=== PATIENT | female | born 1960 | race Caucasian/White ===

== ENCOUNTER → 2017-03-24 | Outpatient (CLI) | payer BC ==
--- NOTE | 2017-03-24 18:19 | DIAGNOSTIC IMAGING REPORT ---
RIGHT LOWER EXTREMITY VENOUS DOPPLER CLINICAL HISTORY: Right calf pain COMPARISON STUDY: No previous studies for comparison. TECHNIQUE: Sonography of the deep venous system of the right lower extremity was performed. Compression and augmentation were evaluated. FINDINGS: The right common femoral, superficial femoral and popliteal veins were compressible. Augmentation was normal. Flow was shown within the deep calf vessels. Note is made of a 7.3 cm complex cystic right popliteal fossa abnormality. IMPRESSION: 1. No evidence of deep venous thrombus within the right lower extremity. 2. 7.3 cm complex cystic right popliteal fossa abnormality. While nonspecific, this likely reflects a popliteal cyst. A short-term follow-up ultrasound in 3 months is recommended. Electronically signed by: Mark Rudolph M.D. 03/24/2017 6:18 PM Dictated Date/Time: 03/24/2017 6:15 PM
== END | disposition home or self-care (01) ==
LOC: C.ULTR 17:34
PROVIDERS: ATTEND Orthopaedic Surgery
DX: M79.661 Pain in right lower leg (principal); M71.21 Synovial cyst of popliteal space [Baker], right knee

== ENCOUNTER 2017-12-16 08:37 | Inpatient (IN) | payer BC ==
[2017-11-18 13:31] VITALS: BMI 29.0
--- NOTE | 2017-11-18 14:09 | PAT Medication Instructions ---
Service Date Nov 18, 2017. Current Home Medication List Acetaminophen (Tylenol), 2 TAB PO Q6 PRN for Pain Citalopram Hydrobromide (Celexa), 1 TAB PO QPM Clopidogrel (Plavix), 75 MG PO QAM Meloxicam (Mobic), 15 MG PO QAM Tramadol (Ultram), 1 TAB PO QAM Medication Instructions For Your Scheduled Surgery - Hold the following medications 7 days prior to surgery per surgeon and prescribing physician: Clopidogrel (Plavix), 75 MG PO QAM - [facility] surgeon for instructions: Meloxicam (Mobic), 15 MG PO QAM - Take the following medications the morning of surgery with a sip of water: Acetaminophen (Tylenol), 2 TAB PO Q6 PRN for Pain (okay to take up to 4 hours prior to surgery if needed) Tramadol (Ultram), 1 TAB PO QAM (okay to take up to 4 hours prior to surgery if needed) - Take the following medications as scheduled the night before surgery: Tramadol (Ultram), 1 TAB PO QAM Citalopram Hydrobromide (Celexa), 1 TAB PO QPM If you have any questions please call us at [phone] or [phone] or [phone]
--- NOTE | 2017-11-18 14:50 | DIAGNOSTIC IMAGING REPORT ---
CHEST 2 VIEWS ROUTINE CLINICAL HISTORY: pat preoperative evaluation COMPARISON STUDY: No previous studies for comparison. FINDINGS: The bones soft tissues and hemidiaphragms are normal. The cardiomediastinal silhouette is normal. The lungs are clear. The pulmonary vasculature is normal. IMPRESSION: Negative chest. The above report was generated using voice recognition software. It may contain grammatical, syntax or spelling errors. Electronically signed by: Luke Rice M.D. 11/18/2017 2:49 PM Dictated Date/Time: 11/18/2017 2:49 PM
[2017-11-18 15:20] LABS: BASO % 0.3 %; BASO ABS # 0.02 K/uL (0-0.2); EOS % 1.4 %; HEMOGLOBIN 16.4 g/dL (12.0-16.0); IG# 0.01 K/uL (0.00-0.02); LYMPH ABS # 1.86 K/uL (1.2-3.4); MEAN CELL VOLUME 90.2 fL (80-100); MEAN CORPUSCULAR HEMOGLOBIN 32.2 pg (25-34); MEAN CORPUSCULAR HGB CONC 35.7 g/dl (32-36); MEAN PLATELET VOLUME 9.8 fL (7.4-10.4); MONO % 6.3 %; MONO ABS # 0.45 K/uL (0.11-0.59); NEUT % 65.9 %; NEUT ABS # 4.71 K/uL (1.4-6.5); PLATELET COUNT 227 K/uL (130-400); RED CELL DISTRIBUTION WIDTH CV 12.5 % (11.5-14.5); RED CELL DISTRIBUTION WIDTH SD 41.1 fL (36.4-46.3); WHITE BLOOD COUNT 7.15 K/uL (4.8-10.8)
[2017-11-18 15:32] LABS: PTT PATIENT 25.8 SECONDS (21.0-31.0)
[2017-11-18 15:58] LABS: ALBUMIN 3.8 gm/dl (3.4-5.0); CREATININE 0.76 mg/dl (0.60-1.20); POTASSIUM 4.1 mmol/L (3.5-5.1)
[2017-11-19 05:57] LABS: HEMOGLOBIN A1C 5.4 % (4.5-5.6)
--- NOTE | 2017-12-04 10:08 | HISTORY & PHYSICAL EXAMINATION ---
DATE OF ADMISSION: 12/16/2017 CHIEF COMPLAINT: Right knee pain. HISTORY OF PRESENT ILLNESS: Purvi is a 57-year-old female with a 2 year history of right knee pain. The patient rates her pain at 6/10. She has pain with her daily activities. She has limited standing and walking tolerance. Pain is worse with weightbearing. The patient has been taking tramadol, physical therapy and wearing a brace. She has also had prior knee arthroscopies. She has failed conservative treatment and is scheduled for right knee replacement. PAST MEDICAL HISTORY: Hypercholesterolemia, history of TIA. She denies heart disease, diabetes or DVT. PAST SURGICAL HISTORY: Hysterectomy and right knee arthroscopy. SOCIAL HISTORY: The patient smokes 1 pack a day x30 years. She denies tobacco use. She lives in a single story home. She is and works at [employer]. FAMILY HISTORY: Negative for DVT. MEDICATIONS: Celexa 40 mg daily, Plavix 75 mg daily, simvastatin 40 mg daily, tramadol 50 mg p.r.n., Mobic 15 mg daily. ALLERGIES: PENICILLIN CAUSES HIVES. REVIEW OF SYSTEMS: See HPI. Ten other systems reviewed, all negative. PHYSICAL EXAMINATION: VITAL SIGNS: Height 5 foot 3 inches, weight 170 pounds, BMI 30. GENERAL: This is a well-developed, well-nourished female who is alert and oriented x3. Mood and affect are appropriate. HEENT: Normocephalic, atraumatic. Mucous membranes are moist and intact. NECK: Supple without lymphadenopathy. HEART: Regular rate and rhythm without murmurs, rubs or gallops. LUNGS: Clear to auscultation without wheezes or rhonchi. ABDOMEN: Soft and nontender. Bowel sounds are equal and active. EXTREMITIES: No ecchymosis, redness or warmth. She has mild effusion. She has a large palpable Lopez cyst. She has varus deformity. Range of motion is from 5-110 degrees with no laxity. She is neurovascularly intact with +5/5 strength. X-RAY EXAMINATION: AP and lateral views show joint space narrowing and osteophyte formation. IMPRESSION: Degenerative joint disease, right knee. PLAN: The patient will be admitted for a right total knee arthroplasty. She will have [facility] for home physical therapy. She will resume Plavix likely with once a day, aspirin for DVT prophylaxis.
[~2017-12-16] VITALS: Ht 160 cm; Wt 77.4 kg
[2017-12-16] VITALS (9 sets, daily range): BP systolic 119–164; BP diastolic 57–96; PULSE 60–78; TEMP 36.5–37.2; O2SAT 97–99; Ht 160 cm; Wt 77.4 kg
[2017-12-16] MEDS: TRANEXAMIC ACID INJ 1,000 MG x 2 Bags IV SCH ×4 (06:30→10:45)
[~2017-12-16 08:37] MED LIST: ACET-1256 PO; ACETAMINOPHEN 500 MG TAB PO SCH; BUPIVACAINE 0.25% 30 ML VIAL ONE; BUPIVACAINE 0.5 % 5 MG/1 ML PF 10ML VIAL ONE; CITA40TA12 PO; CLINDAMYCIN 600 MG/54 ML D5W IV SCH; CLOP1TAB15 PO; CeleBREX 200 MG CAP PO SCH; DEXAMETHASONE 4 MG TAB PO SCH; FAMOTIDINE 20 MG TAB PO SCH; GABAPENTIN 600 MG PO SCH; GENERAL ORDER PROBLEM SCH; LACTATED RINGER'S 1000ML 1,000 ML IV SCH; LACTATED RINGER'S 1000ML 500 ML IV SCH; MELO7.5T5 PO; METOCLOPRAMIDE HCL 10 MG TAB PO SCH; ROPIVACAINE 5MG/ML 30 ML 150 MG, BUPIVACAINE 0.5% MPF INJ 30 ML, EpINEphrine HCL INJ 0.... INFIL SCH; TRAM-10 PO; VANCOMYCIN IV 1,250 MG in SODIUM CHLORIDE 0.9% 250ML 250 ML IV SCH
[2017-12-16] MEDS ORDERED: EpHEDrine SULFATE INJ 50 MG/ML AMP IV PRN (08:45)
[2017-12-16] MEDS ORDERED: ATROPINE SULFATE 0.1 MG/ML 5ML SYR IV PRN (08:45)
[2017-12-16] MEDS ORDERED: MIDAZOLAM HCL 1 MG/ML 2ML VIAL ONE (09:22)
[2017-12-16] MEDS ORDERED: FENTANYL CITRATE INJ 50 MCG/1 ML 2 ML VIAL ONE (09:23)
[2017-12-16] MEDS ORDERED: VANCOMYCIN IV 1,250 MG in SODIUM CHLORIDE 0.9% 250ML 250 ML IV SCH (09:30)
--- NOTE | 2017-12-16 09:30 | History & Physical Bridge Note ---
H&P Re-Evaluation Bridge Note: I have examined the patient, reviewed the History & Physical and in the interval since the performance of the History & Physical I have noted the following changes of clinical significance: No changes noted
[2017-12-16] MEDS ORDERED: ORTHO JOINT ANESTHETIC ONE (10:10)
[2017-12-16] MEDS ORDERED: POVIDONE-IODINE OP SOLN 30 ML BTL ONE (10:10)
[2017-12-16] MEDS ORDERED: BACITRACIN 50000 UNIT VIAL ONE (10:10)
--- NOTE | 2017-12-16 11:45 | [facility] Post Operative Brief Note ---
Immediate Operative Summary Operative Date Dec 16, 2017. 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
--- NOTE | 2017-12-16 11:46 | [facility] Operative Report ---
Operative Report Operative Date Dec 16, 2017. 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) Kamron Ibarra PA-C Estimated Blood Loss 5ML Findings Patient presents with severe end-stage tricompartmental degenerative joint disease varus alignment subchondral cystic changes marginal osteophyte sclerosis varus alignment with [id number] changes no response to conservative management including physical therapy and anti-inflammatories Specimens A: Right Knee Bone and Tissue Anesthesia Type MAC Spinal Regional Complication(s) none Disposition Recovery Room / PACU Indications X-rays will be evidence of subchondral sclerosis marginal osteophytes subchondral cystic changes varus alignment bone the bone changes no response of the conservative management patient is failed attempts at conservative management the above was verified intraoperatively patient is failed times of his consolidation corticosteroid injection anti-inflammatories relative rest activity modification Description of Procedure After proper prepping and draping of the Right lower extremity anterior midline incision was made over the region of the extensor extensor mechanism after meticulous hemostasis was obtained and maintained in subcutaneous tissues a medial parapatellar incision was made The patella was subluxed lateralward the medial lateral gutter were cleaned from any hypertrophic synovitis and scar tissue of the distal femoral block was placed and the distal femoral osteotomy cut was made subsequently the chamfers anterior and posterior osteotomy cuts were made utilizing the 4-in-1 block the tibia was subsequently subluxed anteriorward medial and ateral meniscal remnants were excised in their entirety remnants of the anterior and posterior cruciate ligaments were excised in their entirety excellent exposure of the proximal tibia was obtained the tibial osteotomy guide was placed on the proximal tibial osteotomy cut was made once again the knee was irrigated with copious amounts of sterile saline solution the patella was subsequently everted lateralward thickened scar tissue around the patella was removed the patella was subsequently cut utilizing a freehand technique and was drilled prepared for final preparation and placement of patella socially flexion-extension gaps were checked and the equal and symmetric trials were placed to the appropriate femoral and tibial trials with poly-spacer being placed for equal flexion and extension gaps and full range of motion including extension to 0 and flexion to 140 the trial components after having been taken to recovery range of motion was subsequently removed meticulous hemostasis was obtained and maintained subsequently a knee block injection of joint cocktail including ropivacaine 0.5% 150 mg. Bupivacaine 0.5 % epinephrine 1-200,030 mL's toradol 30 mg dexamethasone 4 mg ketamine 10 mg clonidine 100 micrograms normal saline solution 30 mg was infiltrated into the soft tissues of the posterior knee medial lateral gutters and periosteal synovium special attention was paid to protect neurovascular structures at all times subsequently trial components having been removed the knee was irrigated with sterile saline solution. debris was removed the proximal tibia was subsequently prepared and was made ready for the placement of the tibial component tibial component was also cemented and tamped into position the femoral component was subsequently placed and cemented in the position the patellar component was subsequently cemented in position because hemostasis once again obtained and maintained wound having been thoroughly irrigated with debridement and debridement lavage was performed as well as a medial parapatellar incision closed with #1 Vicryl in interrupted fashion subcutaneous was closed with #2 Vicryl skin was closed with skin clips. PA-C was necessary for prepping and drapping as well as wound closure of deep fascia Sub cutaneous tissue and skin and was necessary for the case. A sterile compressive dressing was placed patient was taken to recovery in stable condition of report dictated by Dario I attest to the content of the Intraoperative Record and any orders documented therein. Any exceptions are noted below. I attest to the content of the Intraoperative Record and any orders documented therein. Any exceptions are noted below.
[2017-12-16] MEDS ORDERED: LIDOCAINE HCL 2% 2 ML VIAL (20MG/ML) ONE (11:50)
[2017-12-16] MEDS ORDERED: ONDANSETRON INJ 2 MG/ML 2 ML VIAL ONE (11:50)
[2017-12-16] MEDS ORDERED: PROPOFOL IV EMULSION 10 MG/ML 20 ML VIAL IV ONE (11:50)
[2017-12-16] MEDS ORDERED: TRAMADOL HCL 50 MG TAB PO PRN (12:45)
[2017-12-16] MEDS ORDERED: MAGNESIUM HYDROXIDE SUSP 30 ML UDC PO PRN (12:45)
[2017-12-16] MEDS ORDERED: MoRPHine SULFATE 2 MG/ML CARP IV PRN (12:45)
[2017-12-16] MEDS ORDERED: ONDANSETRON INJ 2 MG/ML 2 ML VIAL IV PRN (12:45)
[2017-12-16] MEDS ORDERED: BISACODYL 10 MG SUPP PR PRN (12:45)
[2017-12-16] MEDS ORDERED: ALUMINUM/MAGNESIUM/SIMETH (MAALOX MAX) 30 ML UDC PO PRN (12:45)
--- NOTE | 2017-12-16 12:46 | DIAGNOSTIC IMAGING REPORT ---
R KNEE 1 OR 2 VIEWS ROUTINE CLINICAL HISTORY: Postoperative evaluation. COMPARISON: None FINDINGS: Alignment of the total right knee arthroplasty is anatomic. There is no fracture or unexpected radiopaque foreign body. Surgical drains are in place. IMPRESSION: Expected findings following total right knee arthroplasty. Electronically signed by: Mark Rudolph M.D. 12/16/2017 12:45 PM Dictated Date/Time: 12/16/2017 12:45 PM
--- NOTE | 2017-12-16 13:28 | Anesthesiology Progress Note ---
Anesthesia Post Op Note Date & Time Dec 16, 2017 at 13:28 Vital Signs Pain Intensity: 0 Vital Signs Past 12 Hours Date Time Temp Pulse Resp B/P (MAP) Pulse Ox O2 Delivery O2 Flow Rate FiO2 12/16/17 13:10 36.5 62 18 110/64 97 Nasal Cannula 2 12/16/17 12:55 36.5 63 16 118/70 98 Nasal Cannula 2 12/16/17 12:45 70 16 113/78 98 Nasal Cannula 2 12/16/17 12:35 66 16 113/66 99 Nasal Cannula 2 12/16/17 12:28 36.7 71 16 114/63 100 Nasal Cannula 2 12/16/17 09:26 97 Room Air 12/16/17 09:23 36.6 75 16 164/96 Notes Mental Status: alert / awake / arousable, participated in evaluation Pt Amnestic to Procedure: Yes Nausea / Vomiting: adequately controlled Pain: adequately controlled Airway Patency, RR, SpO2: stable & adequate BP & HR: stable & adequate Hydration State: stable & adequate Neuraxial Anesthesia: was administered, sensory block is resolving Anesthetic Complications: no major complications apparent
[2017-12-16] MEDS: D5W AND 1/2NSS + 20MEQ KCL 1,000 ML IV SCH ×2 (14:44→23:54)
[2017-12-16] MEDS: FERROUS GLUCONATE 324 MG TAB PO SCH (17:47)
[2017-12-16] MEDS: CLINDAMYCIN IV 600 MG in DEXTROSE 5% 50ML 50 ML IV SCH (17:48)
[2017-12-16] MEDS: ACETAMINOPHEN 500 MG TAB PO SCH (17:48)
[2017-12-16] MEDS: DOCUSATE SODIUM 100 MG CAP PO SCH (20:37)
[2017-12-16] MEDS: ASPIRIN 81 MG ECTAB PO SCH (20:37)
[2017-12-16] MEDS: CeleBREX 200 MG CAP PO SCH (20:38)
[2017-12-16] MEDS: OXYCODONE HCL IR 5 MG TAB (IMMEDIATE RELEASE) PO PRN (20:40)
[2017-12-16] MEDS ORDERED: CITALOPRAM 40 MG TAB PO SCH (21:00)
[2017-12-16] MEDS ORDERED: SENNA 8.6 MG TAB PO SCH (21:00)
[2017-12-17] MEDS: OXYCODONE HCL IR 5 MG TAB (IMMEDIATE RELEASE) PO PRN ×2 (02:12→10:30)
[2017-12-17] MEDS: CLINDAMYCIN IV 600 MG in DEXTROSE 5% 50ML 50 ML IV SCH (02:12)
[2017-12-17 03:56] VITALS: BP 124/68; PULSE 56; TEMP 36.6; O2SAT 97
[2017-12-17] MEDS: ACETAMINOPHEN 500 MG TAB PO SCH (05:48)
[2017-12-17 06:08] LABS: HEMATOCRIT 39.7 % (37-47); HEMOGLOBIN 13.7 g/dL (12.0-16.0); MEAN CELL VOLUME 91.1 fL (80-100); MEAN CORPUSCULAR HEMOGLOBIN 31.4 pg (25-34); MEAN CORPUSCULAR HGB CONC 34.5 g/dl (32-36); PLATELET COUNT 226 K/uL (130-400); RED CELL DISTRIBUTION WIDTH CV 12.5 % (11.5-14.5); RED CELL DISTRIBUTION WIDTH SD 41.7 fL (36.4-46.3); WHITE BLOOD COUNT 21.81 K/uL (4.8-10.8)
[2017-12-17 06:44] LABS: CALCIUM 8.4 mg/dl (8.5-10.1); CREATININE 0.75 mg/dl (0.60-1.20); POTASSIUM 4.3 mmol/L (3.5-5.1)
--- NOTE | 2017-12-17 06:58 | Orthopedic Progress Note ---
Orthopedic Progress Note Date of Service Dec 17, 2017. Subjective Post OP Day: 1 (right TKA) Reports: feeling well, pain controlled w PO medications, Denies: complaints, chest pain, SOB, nausea / vomiting, light headedness, calf pain Objective calves soft nontender, N/V intact, capillary refill less than 2 sec., dressing C /D/I, A&O x3, toes mobile, hemovac drainage (175cc/8 hours) Date Time Temp Pulse Resp B/P (MAP) Pulse Ox O2 Delivery O2 Flow Rate FiO2 12/17/17 03:56 36.6 56 16 124/68 (86) 97 Room Air 12/16/17 23:50 Room Air 12/16/17 23:09 36.8 60 16 119/57 (77) 97 Room Air 12/16/17 19:59 37.2 64 17 125/67 (86) 97 Room Air 12/16/17 17:00 36.6 78 17 148/69 (95) 98 Room Air 12/16/17 15:48 36.9 62 17 121/65 (83) 99 Room Air 12/16/17 15:32 Nasal Cannula 2.0 12/16/17 14:51 36.5 61 17 123/72 (89) 97 Nasal Cannula 2.0 12/16/17 14:16 36.9 63 16 130/72 (91) 99 Nasal Cannula 2.0 12/16/17 13:45 Nasal Cannula 2.0 12/16/17 13:45 97 Nasal Cannula 12/16/17 13:45 37.0 68 20 125/67 (86) 97 Nasal Cannula 2.0 12/16/17 13:10 36.5 62 18 110/64 97 Nasal Cannula 2 12/16/17 12:55 36.5 63 16 118/70 98 Nasal Cannula 2 12/16/17 12:45 70 16 113/78 98 Nasal Cannula 2 12/16/17 12:35 66 16 113/66 99 Nasal Cannula 2 12/16/17 12:28 36.7 71 16 114/63 100 Nasal Cannula 2 12/16/17 09:26 97 Room Air 12/16/17 09:23 36.6 75 16 164/96 Laboratory Results 24 Hours: Test 12/17/17 05:31 Hematocrit 39.7 % Hemoglobin 13.7 g/dL Assessment & Plan Assessment: POD #1 s/p right tka -pt/ot -dvt proph with azucena/scd/asa/plavix -plan for dc home with [facility], possibly after PT today may leave drain in and have pulled tomorrow, will recheck after PT Discharge Planning Discharge Planning: home with home health DVT Prophylaxis: TEDs, SCDs Therapy: Physical Therapy
--- NOTE | 2017-12-17 07:01 | Discharge Instructions ---
Discharge Instructions Date of Service Dec 17, 2017. Admission Reason for Admission: Right Knee Osteoarthritis Discharge Discharge Diagnosis / Problem: right total knee replacement Discharge Goals Goal(s): Decrease discomfort, Improve function, Increase independence Activity Recommendations Activity Limitations: as noted below Weightbearing Status: Right weightbearing (as tolerated) . Instructions / Follow-Up Instructions / Follow-Up ACTIVITY RECOMMENDATIONS: SELF CARE INSTRUCTIONS AFTER TOTAL KNEE REPLACEMENT A. You may need to continue a physical therapy program after discharge from the hospital. There are several options available to you. Your doctor will assist you in selecting the best one for you. 1. An out-patient facility 2 to 3 times a week for therapy or home therapy. 2. Continue working on all exercises taught to you in the hospital. Your goals should be to increase bending of your knee to 90 degrees and beyond and to fully straighten your knee. B. You may progress at your own pace from walking with a walker or crutches to a cane; then to no assistive devices. C. Make walking a part of your daily routine. Be up as much as comfortable with rest periods throughout the day. Rest with leg elevation is very important. Use the ice wrap frequently for the first 3-4 weeks. D. There are no restrictions on activities. 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 E. Wear the long elastic stockings (THIAGO hose) 20 hours a day for 2 weeks after surgery. They can be removed several times a day for laundering and for a bath. F. You may shower, no tub baths until cleared by your doctor. SPECIAL CARE INSTRUCTIONS: VERY IMPORTANT TO READ AND REVIEW A. There are a few signs you need to watch for after you are home. Call [facility] [place] if you notice any of the followin. Increased severe knee pain. Some pain is expected especially when you exercise. 2. Increased swelling in your leg or knee; pain or swelling of the calf muscle in either lower leg. 3. Any fluid drainage from the incision. 4. Shortness of breath or chest pain. B. Please call [facility] at if you have any concerns or questions about your operation or recovery. The doctor or his nurse will return your call promptly. C. You must take antibiotics before dental work, bladder, bowel or other surgery. Your doctor will provide you with a permanent care to carry describing this precaution. IMPORTANT: * REMEMBER TO TAKE ASPIRIN, 81 MG, TWICE DAILY FOR 4 WEEKS UNLESS OTHERWISE DIRECTED. THIS IS YOUR BLOOD THINNER. * HIGH RISK PATIENTS MAY BE PRESCRIBED A STRONGER BLOOD THINNER. THIS WILL BE PROVIDED AT DISCHARGE. * CALL IF INCREASED PAIN, REDNESS, DRAINAGE OR FEVER GREATER THAT 101. * WEAR THIAGO HOSE 20 HOURS PER DAY FOR 2 WEEKS. * DERMABOND Prineo- This is a mesh tape dressing that is covered with glue. It should remain in place until the incision is properly healed, usually 10-14 days. This dressing is designed to naturally slough off. You may trim the excess mesh tape as it peels off. Incision may be briefly wet in a shower. Dry immediately by blotting with a clean, dry towel. Do not bath or swim until instructed by your doctor. Do not scratch, rub, or pick at the dressing. Do not apply any topical ointments or lotions until dressing is completely removed and/or instructed by your doctor. There may be a small piece of suture material at one end of your incision. Do not pull or trim this. If it is bothersome or catching on clothing, you may cover it with a band-aid. FOLLOW UP VISIT: If appointment is not already scheduled: Please call [facility] [place] to make a follow-up appointment for 2 weeks after your surgery at . Current Hospital Diet Patient's current hospital diet: Regular Diet Discharge Diet Recommended Diet: Regular Diet Procedures Procedures Performed: Right Total Knee Arthroplasty utilizing [email or web address] journey to patient matched total knee arthroplasty size 4 femur 3 tibia 11 Norma 29 oval patella Pending Studies Studies pending at discharge: no Laboratory Results Hemoglobin A1c Test 11/18/17 14:16 Range/Units Estimated Average Glucose 108 mg/dl Hemoglobin A1c 5.4 4.5-5.6 % Medical Emergencies . Who to Call and When: Medical Emergencies: If at any time you feel your situation is an emergency, please call 911 immediately. . Non-Emergent Contact Non-Emergency issues call your: Primary Care Provider, Surgeon . "Provider Documentation" section prepared by Luke Mar. . [place] Drug Monitoring Program Search Results: patient reviewed within database, no issues identified
[2017-12-17] MEDS ORDERED: ONDA-170 PO (07:04)
[2017-12-17] MEDS ORDERED: RXC5 PO (07:04)
[2017-12-17] MEDS ORDERED: CLB200 PO (07:04)
[2017-12-17] MEDS ORDERED: ULT50X PO (07:04)
[2017-12-17] MEDS ORDERED: ASPEC81 PO (07:04)
[2017-12-17] MEDS ORDERED: CLC100 PO (07:04)
[2017-12-17] MEDS ORDERED: ACET-24 PO (07:04)
[2017-12-17 07:17] VITALS: BP 132/74; PULSE 58; TEMP 36.6; O2SAT 99
[2017-12-17] MEDS ORDERED: MULTIVITAMIN TAB PO SCH (09:00)
[2017-12-17] MEDS ORDERED: CLOPIDOGREL BISULFATE 75 MG TAB PO SCH (09:00)
[2017-12-17] MEDS: FERROUS GLUCONATE 324 MG TAB PO SCH (09:40)
[2017-12-17] MEDS: CeleBREX 200 MG CAP PO SCH (09:41)
[2017-12-17] MEDS: DOCUSATE SODIUM 100 MG CAP PO SCH (09:41)
[2017-12-17] MEDS: ASPIRIN 81 MG ECTAB PO SCH (09:42)
[2017-12-17 09:45] VITALS: BP 137/75; PULSE 66; TEMP 36.5; O2SAT 97
[2017-12-17 10:15] VITALS: BP 135/69; PULSE 67; TEMP 36.5; O2SAT 95
[2017-12-17] MEDS: D5W AND 1/2NSS + 20MEQ KCL 1,000 ML IV SCH (10:30)
--- NOTE | 2017-12-17 10:48 | Anesthesiology Progress Note ---
Anesthesia Post Op Note Date & Time Dec 17, 2017 at 10:47 Vital Signs Vital Signs Past 12 Hours Date Time Temp Pulse Resp B/P (MAP) Pulse Ox O2 Delivery O2 Flow Rate FiO2 12/17/17 10:15 36.5 67 16 135/69 (91) 95 Room Air 12/17/17 09:49 36.6 58 16 99 Room Air 12/17/17 09:45 36.5 66 16 137/75 (95) 97 Nasal Cannula 2.0 12/17/17 07:17 36.6 58 16 132/74 (93) 99 Room Air 12/17/17 03:56 36.6 56 16 124/68 (86) 97 Room Air 12/16/17 23:50 Room Air 12/16/17 23:09 36.8 60 16 119/57 (77) 97 Room Air Notes Mental Status: alert / awake / arousable, participated in evaluation Pt Amnestic to Procedure: Yes Nausea / Vomiting: adequately controlled Pain: adequately controlled Airway Patency, RR, SpO2: stable & adequate BP & HR: stable & adequate Hydration State: stable & adequate Neuraxial Anesthesia: sensory block resolved Anesthetic Complications: no major complications apparent
== END 2017-12-17 11:15 | disposition home health service (06) | DRG 470 ==
LOC: C.ACU 08:37 → C.3E 09:40 → ENRESERV 12:48
PROVIDERS: ADMIT Orthopaedic Surgery; ATTEND Orthopaedic Surgery
PROC: 0SRC0J9 Replacement of Right Knee Joint with Synthetic Substitute, Cemented, Open Approach (ICD-10-PCS; principal; 2017-12-16 11:00)
DX: M17.11 Unilateral primary osteoarthritis, right knee (principal); E78.00 Pure hypercholesterolemia, unspecified; Z79.899 Other long term (current) drug therapy; Z79.1 Long term (current) use of non-steroidal anti-inflammatories (NSAID); Z79.02 Long term (current) use of antithrombotics/antiplatelets; Z86.73 Personal history of transient ischemic attack (TIA), and cerebral infarction without residual deficits; Z87.891 Personal history of nicotine dependence; Z88.0 Allergy status to penicillin

== ENCOUNTER 2019-09-27 06:06 | Inpatient (IN) ==
--- NOTE | 2019-09-13 15:56 | PAT Medication Instructions ---
Medication Instructions Date of Service September 13, 2019 Home Medications Zocor 1 tab PO QAM acetaminophen [Tylenol Extra Strength] 1,000 mg PO Q6H PRN citalopram 40 mg PO HS clopidogrel [Plavix] 75 mg PO QAM ibuprofen 200 mg PO Q6H PRN multivitamin 1 tab PO QAM omeprazole magnesium [Prilosec OTC] 20 mg PO DAILY PRN oxycodone 5 - 10 mg PO Q4H PRN polyethylene glycol 3350 [Miralax] 17 g PO DAILY PRN tramadol 50 - 100 mg PO Q6H PRN ASK your surgeon for instructions ibuprofen 200 mg PO Q6H PRN ASK your prescriber and surgeon clopidogrel [Plavix] 75 mg PO QAM DO NOT take the morning of surgery multivitamin 1 tab PO QAM polyethylene glycol 3350 [Miralax] 17 g PO DAILY PRN Take morning of surgery With a small sip of water, OTHERWISE NOTHING TO EAT OR DRINK AFTER MIDNIGHT: Zocor 1 tab PO QAM acetaminophen [Tylenol Extra Strength] 1,000 mg PO Q6H PRN (if needed, may be taken up to four hours before surgery) omeprazole magnesium [Prilosec OTC] 20 mg PO DAILY PRN (if needed) oxycodone 5 - 10 mg PO Q4H PRN (if needed, may be taken up to four hours before surgery) tramadol 50 - 100 mg PO Q6H PRN (if needed, may be taken up to four hours before surgery) Take evening before surgery citalopram 40 mg PO HS Other Notes If you have any questions please call us at [phone] or [phone] or [phone] or [phone]
--- NOTE | 2019-09-14 10:21 | Anesthesiology Consultation ---
Date of Service September 14, 2019 Assessment & Plan (1) Encounter for pre-operative examination: Chart Review Chart Review: Acceptable Risk for Surgery and Patient seen in Pre Admission Testing Teaching & Discussion Instructed NPO after midnight before surgery, except medications with 15 cc of water. Medication instructions provided according to the PAT guidelines. Plavix instructions per surgeon and prescriber. History Surgery Operation Date: 09/27/19 07:45 Proposed Procedures p L5-S1 Decompression and Fusion; Spinal Cord Monitoring - Gary Brasher DO Height/Weight Height: 5 ft 3.75 in Weight: 84.7 kg Allergies Allergy/AdvReac Type Severity Reaction Status Date / Time adhesive Allergy Unknown blisters Verified 09/09/19 12:20 WITH BANDAIDS Penicillins Allergy Unknown HIVES Verified 09/09/19 12:20 nickel Allergy EARS SWELL Verified 09/09/19 12:21 UP, ITCHY-JEWELRY oxycodone AdvReac Unknown NAUSEA, Verified 09/09/19 12:25 DIZZINESS Medications Home Medications Medication Instructions Recorded Confirmed Last Taken Zocor 1 tab PO QAM 09/09/19 09/09/19 Unknown acetaminophen [Tylenol Extra 1,000 mg PO Q6H PRN 09/09/19 09/09/19 Unknown Strength] citalopram 40 mg PO HS 09/09/19 09/09/19 Unknown clopidogrel [Plavix] 75 mg PO QAM 09/09/19 09/09/19 Unknown ibuprofen 200 mg PO Q6H PRN 09/09/19 09/09/19 Unknown multivitamin 1 tab PO QAM 09/09/19 09/09/19 Unknown omeprazole magnesium [Prilosec OTC] 20 mg PO DAILY PRN 09/09/19 09/09/19 Unknown oxycodone 5 - 10 mg PO Q4H PRN 09/09/19 09/09/19 Unknown polyethylene glycol 3350 [Miralax] 17 g PO DAILY PRN 09/09/19 09/09/19 Unknown tramadol 50 - 100 mg PO Q6H PRN 09/09/19 09/09/19 Unknown Past Medical History Medical History Chronic back pain TO LEFT LEG/HIP Heartburn Hyperlipidemia Osteoarthritis Transient ischemic attack (TIA) HX LAST ONE 2012-PLACED ON PLAVIX-NO ISSUES SINCE Exercise / Class Metabolic Activity II 4-5 Yardwork/Stairs/Walk up hill (Denies CP or SOB with 1 FOS) Past Family History Family History Grandmother (Maternal) Family history of esophageal cancer Past Surgical History Surgical History History of hysterectomy History of total knee replacement RIGHT Past Anesthesia History No Hx of Anesthesia Complications and No Family Hx of Anesthesia Complications (other than mother PONV) History of PONV No Hx of PONV and Hx of Motion Sickness Social History Smoking Status: Current every day smoker Smoking cigarettes per day: 10-20 CIGS A DAY X 30 YRS Do You Dip or Chew Tobacco: No Hx Alcohol Use: No Hx Substance Use: No Review of Systems Pt denies any recent chest pain, shortness of breath, palpitations, cough, fever or URI. Physical Exam Vital Signs BP: 185/85 (pt to see PCP prior to surgery, pt states she is nervous and in pain today) P: 63bpm SPO2: 96% RA T: 98.2 F R: 16 ENMT Mouth: + dentures and + edentulous Thyromental Distance: < 3.5 Finger Breadths (3) Mallampati Class: II Neck normal visual inspection; neck extension not limited Respiratory normal respiratory effort Auscultation: lungs clear to auscultation bilaterally Cardiovascular Rate/Rhythm: regular rate and regular rhythm Heart Sounds: no murmur Vessels: no carotid bruit Extremities: no edema Testing Laboratory Results 09/14/19 10:09 09/14/19 10:09 PT 9.9 Seconds (9.0-12.0) 09/14/19 10:09 INR 1.0 (0.9-1.1) 09/14/19 10:09 APTT 25.1 Seconds (21.0-31.0) 09/14/19 10:09 Urine Color Yellow 09/14/19 10:09 Urine Appearance Clear (Clear) 09/14/19 10:09 Urine pH 6.5 (4.5-7.5) 09/14/19 10:09 Ur Specific [place] 1.006 (1.000-1.030) 09/14/19 10:09 Urine Protein Negative (Negative) 09/14/19 10:09 Urine Glucose (UA) Negative (Negative) 09/14/19 10:09 Urine Ketones Negative (Negative) 09/14/19 10:09 Urine Nitrite Negative (Negative) 09/14/19 10:09 Ur Leukocyte Esterase Negative (Negative) 09/14/19 10:09 Blood Type O Positive 09/14/19 10:09 Antibody Screen NEGATIVE 09/14/19 10:09 Electrocardiogram Date: 09/14/19 Findings: + NSR @ (62bpm) Chest X-Ray Date: 09/14/19 Findings: + NAD
[2019-09-14 10:41] LABS: Basophils # (auto) 0.03 K/uL (0-0.2); Basophils % (auto) 0.4 %; Eosinophils # (auto) 0.11 K/uL (0-0.5); Eosinophils % (auto) 1.5 %; Hematocrit (blood only) 48.8 % (37-47); Hemoglobin 16.9 g/dL (12.0-16.0); Immature Granulocytes # (auto) 0.02 K/uL (0.00-0.02); Immature Granulocytes % (auto) 0.3 %; Lymphocytes # (auto) 1.57 K/uL (1.2-3.4); Lymphocytes % (auto) 22.1 %; Mean Corpuscular Hemoglobin 31.6 pg (25-34); Mean Corpuscular Hgb Conc 34.6 g/dL (32-36); Mean Corpuscular Volume 91.2 fL (80-100); Mean Platelet Volume 10.1 fL (7.4-10.4); Monocytes # (auto) 0.56 K/uL (0.11-0.59); Monocytes % (auto) 7.9 %; Neutrophils # (auto) 4.83 K/uL (1.4-6.5); Neutrophils % (auto) 67.8 %; Platelet Count 242 K/uL (130-400); RDW Coefficient of Variation 12.8 % (11.5-14.5); RDW Standard Deviation 42.3 fL (36.4-46.3); Red Blood Count 5.35 M/uL (4.2-5.4); White Blood Count 7.12 K/uL (4.8-10.8)
[2019-09-14 10:42] LABS: Appearance Urine Clear (Clear); Bilirubin Urine Negative (Negative); Blood Urine Negative (Negative); Color Urine Yellow; Glucose Urine UA Negative (Negative); Ketones Urine Negative (Negative); Leukocyte Esterase Urine Negative (Negative); Nitrite Urine Negative (Negative); Protein Urine Negative (Negative); Specific Gravity Urine 1.006 (1.000-1.030); Urobilinogen Urine Negative (Negative); pH Urine 6.5 (4.5-7.5)
[2019-09-14 11:02] LABS: Partial Thromboplastin Ratio 0.9; Partial Thromboplastin Time 25.1 Seconds (21.0-31.0); Prothrombin Time 9.9 Seconds (9.0-12.0)
--- NOTE | 2019-09-14 11:22 | XRay Report ---
XR chest Pre-admission PA/Lat CLINICAL HISTORY: Preoperative chest COMPARISON STUDY: 11/18/2017 FINDINGS: The cardiac and mediastinal contours are normal. There is no evidence of focal pulmonary co nsolidation. There is no evidence of failure. No pleural effusions are visualized.[ IMPRESSION: No active disease in the chest. ACT 112: Negative or not required by law. Electronically signed by: Estrada Grossman M.D. 09/14/2019 11:21 AM
--- NOTE | 2019-09-14 13:54 | Electrocardiogram Report ---
Test Reason : Blood Pressure : / mmHG Vent. Rate : 062 BPM Atrial Rate : 062 BPM P-R Int : 148 ms QRS Dur : 074 ms QT Int : 408 ms P-R-T Axes : 066 021 042 degrees QTc Int : 414 ms Normal sinus rhythm Normal ECG No previous ECGs available Confirmed by Alfred Sparks ([id number]) on 09/14/2019 1:54:37 PM Referred By: Gary Brasher Confirmed By:Alfred Sparks
[2019-09-14 14:23] LABS: BUN Creatinine Ratio 14.4 (10-20); Creatinine Clr Calc Pharmacy 67.7 ml/min; Est GFR (African American) 76.1; Est GFR (Non-African American) 65.7; Potassium 4.2 mmol/L (3.5-5.1)
[~2019-09-27 06:06] MED LIST changes: -ACET-1256 PO; -BUPIVACAINE 0.25% 30 ML VIAL ONE; -BUPIVACAINE 0.5 % 5 MG/1 ML PF 10ML VIAL ONE; -CITA40TA12 PO; +CLINDAMYCIN 600 MG/54 ML BAG IV SCH; -CLINDAMYCIN 600 MG/54 ML D5W IV SCH; -CLOP1TAB15 PO; -DEXAMETHASONE 4 MG TAB PO SCH; -FAMOTIDINE 20 MG TAB PO SCH; +GABAPENTIN 600 MG DOSE PO SCH; -GABAPENTIN 600 MG PO SCH; -GENERAL ORDER PROBLEM SCH; -LACTATED RINGER'S 1000ML 1,000 ML IV SCH; -LACTATED RINGER'S 1000ML 500 ML IV SCH; +LR 15ML/HR IV SCH; -MELO7.5T5 PO; -METOCLOPRAMIDE HCL 10 MG TAB PO SCH; -ROPIVACAINE 5MG/ML 30 ML 150 MG, BUPIVACAINE 0.5% MPF INJ 30 ML, EpINEphrine HCL INJ 0.... INFIL SCH; -TRAM-10 PO; -VANCOMYCIN IV 1,250 MG in SODIUM CHLORIDE 0.9% 250ML 250 ML IV SCH
[2019-09-27] MEDS ORDERED: GLYCOPYRROLATE 0.2 MG/ML VIAL ONE ×2 (06:38→09:08)
[2019-09-27] MEDS ORDERED: LIDOCAINE HCL 2% 2 ML VIAL/AMP(20MG/ML) INFIL ONE (06:38)
[2019-09-27] MEDS ORDERED: DEXAMETHASONE SOD INJ 4 MG/ML VIAL ONE (06:38)
[2019-09-27] MEDS ORDERED: PROPOFOL IV EMULSION 10 MG/ML 20 ML VIAL IV ONE (06:38)
[2019-09-27] MEDS ORDERED: fentaNYL citrate 100 MCG/2 ML VIAL ONE ×2 (06:38)
[2019-09-27] MEDS ORDERED: NEOSTIGMINE METHYLSULFATE 1 MG/ML 10ML VIAL ONE ×2 (06:38→09:08)
[2019-09-27] MEDS ORDERED: MIDAZOLAM HCL 1 MG/ML 2ML VIAL ONE (06:38)
[2019-09-27] MEDS ORDERED: ONDANSETRON INJ 2 MG/ML 2 ML VIAL ONE (06:38)
[2019-09-27] MEDS ORDERED: HYDROmorphone INJ 2 MG/ML SYR/VIAL ONE (06:41)
[2019-09-27] MEDS ORDERED: ATROPINE SULFATE 0.1 MG/ML 10ML SYR IV PRN (06:53)
[2019-09-27] MEDS ORDERED: ePHEDrine sulfate 50 MG/ML AMP IV PRN (06:53)
[2019-09-27] MEDS ORDERED: ONDANSETRON INJ 2 MG/ML 2 ML VIAL IV PRN ×2 (06:53→10:37)
[2019-09-27] MEDS ORDERED: BACITRACIN INJ 50,000 UNIT VIAL ONE (07:05)
[2019-09-27] MEDS ORDERED: BUPIVACAINE/EPINEPHRINE 0.5% MPF 1:200,000 10 ML VIAL ONE (07:05)
--- NOTE | 2019-09-27 07:24 | History & Physical Report ---
Date of Service September 27, 2019 Assessment & Plan (1) Neurogenic claudication due to lumbar spinal stenosis: Decompression fusion L5-S1 Present on Admission?: Yes History of Present Illness Chief Complaint: Back and bilateral leg pain Primary Care Provider: Leroy Garza MD This is a 59-year-old female who presents with chronic persistent back and leg pain after failing extensive course of nonoperative care is here for surgical intervention. Allergies Allergy/AdvReac Type Severity Reaction Status Date / Time adhesive Allergy Unknown blisters Verified 09/09/19 12:20 WITH BANDAIDS Penicillins Allergy Unknown HIVES Verified 09/09/19 12:20 nickel Allergy EARS SWELL Verified 09/09/19 12:21 UP, ITCHY-JEWELRY oxycodone AdvReac Unknown NAUSEA, Verified 09/09/19 12:25 DIZZINESS Home Medications Home Medications Medication Instructions Recorded Confirmed Type Zocor 1 tab PO QAM 09/09/19 09/27/19 History acetaminophen [Tylenol Extra 1,000 mg PO Q6H PRN 09/09/19 09/27/19 History Strength] citalopram 40 mg PO HS 09/09/19 09/27/19 History clopidogrel [Plavix] 75 mg PO QAM 09/09/19 09/27/19 History ibuprofen 200 mg PO Q6H PRN 09/09/19 09/27/19 History multivitamin 1 tab PO QAM 09/09/19 09/27/19 History omeprazole magnesium [Prilosec OTC] 20 mg PO DAILY PRN 09/09/19 09/27/19 History oxycodone 5 - 10 mg PO Q4H PRN 09/09/19 09/27/19 History polyethylene glycol 3350 [Miralax] 17 g PO DAILY PRN 09/09/19 09/27/19 History tramadol 50 - 100 mg PO Q6H PRN 09/09/19 09/27/19 History Past Med/Surg History Medical History Chronic back pain TO LEFT LEG/HIP Heartburn Hyperlipidemia Osteoarthritis Transient ischemic attack (TIA) HX LAST ONE 2012-PLACED ON PLAVIX-NO ISSUES SINCE Surgical History History of hysterectomy History of total knee replacement RIGHT Family History Grandmother (Maternal) Family history of esophageal cancer Social History Preferred Language: Korean Communication Ability: Effective Rivet Passer Required: No Beliefs That Will Affect Care: None Current Living Situation: Spouse and Family Other Information That Helps Us Care for You: No Feels Safe at Home: Yes Safety Concerns: Feels Safe At This Time Smoking Status: Current every day smoker Cigarettes Per Day: 10-20 CIGS A DAY X 30 YRS ; Do You Dip or Chew Tobacco: No ; Second Hand Exposure: Yes (FAMILY SMOKED) ; Hx Alcohol Use: No Hx Substance Use: No Physical Exam Physical Exam: Patient is alert and oriented neurologically intact. Results & Data Vital Signs (Past 12 Hours) Vital Signs Temp Pulse Resp BP Pulse Ox 09/27/19 06:38 36.9 C 76 18 181/98 H 97
--- NOTE | 2019-09-27 07:24 | History & Physical Bridge Note ---
Date of Service September 27, 2019 History & Physical Bridge Note I have examined the patient, reviewed the History & Physical and in the interval since the performance of the History & Physical I have noted the following changes of clinical significance: no changes noted
[2019-09-27] MEDS ORDERED: FLOSEAL HEMOSTATIC MATRIX 10ML TOP ONE (08:19)
--- NOTE | 2019-09-27 09:17 | Operative Report ---
Post Operative Report Pre & Post Diagnosis Operation Date: 09/27/19 07:45 Pre-Op Diagnosis: Lumbar spondylolisthesis L5-S1 with neurogenic claudication Post-Op Diagnosis: Same I identified the patient and participated in the time-out.: Yes Procedure Operation Date: 09/27/19 07:45 Actual Procedures #1 lumbar decompression with bilateral medial facetectomies foraminotomies L4-5 L5-S1. #2 posterior spinal fusion L5-S1. #3 placement posterior instrumentation L5-S1. #4 interbody fusion L5-S1. #5 placement of peek cage 11 x 22 mm at L5-S1. #6 placement of locally harvested morselized autograft in the posterior lateral gutters. #7 placement infuse collagen sponge by mass graft in the posterior lateral gutters and ostial amp and interbody space. Surgeon Gary Brasher, Line Service Supervisor Ame Mariscal Estimated Blood Loss 75 Findings See Below Patient is 5 foot 3 inches tall weighing over 84 kg with a BMI in excess of 33. Patient's body habitus did add increased technical difficulty to the procedure adding at least 25% increase in operative time. Specimens None Indications This is a 59-year-old female that presents with above-mentioned diagnosis after failing extensive course of nonoperative care is here for surgical intervention. Description of Procedure Patient was met with identified and informed consent obtained. Patient was then taken to the operative suite underwent intubation placed in a prone position the Shashank table on top of the Stiven frame. All bony prominences well-padded eyes inspected to ensure no external pressure placed upon the. This point the lumbar spine was prepped and draped in normal sterile fashion. Sharp dissection with the assistance of Bovie cautery was performed down to and exposing the lamina and transverse processes of L5 and the sacral ala bilaterally. Obvious bilateral pars defect noted. Complete laminectomy of L5 partial laminectomy of L4 was then performed including bilateral medial facetectomies and foraminotomies addressing all spinal stenosis. Pedicle screws were then placed in L5 and the S1 levels bilaterally with assistance of fluoroscopy and appropriate size hilary placed. By way of a trans-foraminal approach on the left complete discectomy was performed endplates curetted to subcortical bleeding bone and an 11 x 22 mm peek cage filled with osteo-bone graft tapped in position. The rods were then locked in final position bilaterally. The transverse processes of L5 and sacral ala burred to subcortical bleeding bone. Infuse collagen sponge master graft and local autograft placed in the posterior lateral gutters. 15 round WINTER drain inserted. The incision was then closed with 1 Vicryl in the fascia 2-0 Vicryl subcutaneously and 4 Monocryl for final skin closure. Steri-Strips sterile dressing placed. Patient waiting to PACU stable disc. Please note Ame Mariscal was present at the entire procedure involved the patient positioning complex portions of the surgery and final skin closure. Lastly spinal cord monitoring was utilized that the procedure no changes noted. I attest to the content of the Intraoperative Record and any orders documented therein. Any exceptions are noted below.
--- NOTE | 2019-09-27 09:24 | Fluoroscopy Report ---
FL lumbar spine 2-3V CLINICAL HISTORY: L5-S1 DECOMPRESSION/FUSION COMPARISON STUDY: None. FLUOROSCOPY TIME: 20 seconds. FLUOROSCOPIC IMAGES: 2 FINDINGS: Fluoroscopy images demonstrate an L5-S1 discectomy with interbody spacer placement. There i s a posterior decompression. There are bilateral pedicle screws at the L5 and S1 levels. IMPRESSION: Fluoroscopy provided for L5-S1 discectomy, posterior decompression and bilateral pedicle screw fusion. ACT 112: Negative or not required by law. Electronically signed by: Mark Rudolph M.D. 09/27/2019 9:22 AM
[2019-09-27] MEDS: fentaNYL citrate 100 MCG/2 ML VIAL IV PRN ×2 (09:45→09:50)
--- NOTE | 2019-09-27 10:09 | Anesthesiology Progress Note ---
Date of Service September 27, 2019 Anesthesia Post Procedure Vital Signs Vital Signs: Temp Pulse Pulse Resp BP Pulse Ox 09/27/19 10:05 97.2 F L 77 16 151/82 H 95 09/27/19 09:55 64 12 148/81 H 95 09/27/19 09:45 78 16 162/85 H 96 09/27/19 09:35 71 15 154/95 H 92 09/27/19 09:28 97.2 F L 79 16 190/97 H 91 09/27/19 06:38 98.4 F 76 18 181/98 H 97 Pain Intensity Back: Pain Intensity: 2 Transfer of Care Handoff Completed per policy Notes Mental Status: alert / awake / arousable and participated in evaluation Patient Amnestic to Procedure: Yes Nausea / Vomiting: adequately controlled Pain: adequately controlled Airway Patency, RR, SpO2: stable & adequate BP & HR: stable & adequate Hydration State: stable & adequate Anesthetic Complications: no major complications apparent and Pt Satisfied with anesthetic care
[2019-09-27] MEDS ORDERED: TRAMADOL HCL 50 MG TABLET PO PRN (10:37)
[2019-09-27] MEDS ORDERED: LORazepam 0.5 MG TAB PO PRN (10:37)
[2019-09-27] MEDS ORDERED: SOD PHOSPHATE/SOD BIPHOSPHATE ENEMA 132 ML BTL PR PRN (10:37)
[2019-09-27] MEDS ORDERED: NALOXONE HCL 0.4 MG/1 ML VIAL/CARP IV PRN (10:37)
[2019-09-27] MEDS ORDERED: ONDANSETRON 4 MG OD TAB PO PRN (10:37)
[2019-09-27] MEDS ORDERED: METOCLOPRAMIDE HCL INJ 5 MG/ML 2 ML VIAL IV PRN (10:37)
[2019-09-27] MEDS ORDERED: HYDROmorphone INJ 0.5 MG/0.5 ML SYR IV PRN (10:37)
[2019-09-27] MEDS ORDERED: ACETAMINOPHEN 1,000 MG/100 ML VIAL IV PRN (10:37)
[2019-09-27] MEDS ORDERED: DO NOT ADMINISTER FLU VACCINE PRN (10:37)
[2019-09-27] MEDS ORDERED: PANTOprazole 40 MG TAB PO PRN (10:37)
[2019-09-27] MEDS ORDERED: FAMOTIDINE 20 MG TAB PO PRN (10:37)
[2019-09-27] MEDS ORDERED: PROMETHAZINE HCL 12.5 MG in SODIUM CHLORIDE 0.9% 50 ML IV PRN (10:37)
[2019-09-27] MEDS ORDERED: ALUMINUM/MAGNESIUM SUSP 30 ML UDC PO PRN (10:37)
[2019-09-27] MEDS ORDERED: MAGNESIUM HYDROXIDE SUSP 30 ML UDC PO PRN (10:37)
[2019-09-27] MEDS ORDERED: HYDROmorphone INJ 1 MG/ML SYRINGE IV PRN (10:37)
[2019-09-27] MEDS ORDERED: LORazepam 0.5 MG/1 ML VIAL IV PRN (10:37)
[2019-09-27] MEDS ORDERED: ACETAMINOPHEN 500 MG TAB PO PRN (10:37)
[2019-09-27] MEDS ORDERED: DO NOT ADMINISTER PNEUMOCOCCAL VACCINE PRN (10:37)
[2019-09-27] MEDS ORDERED: bisacodyL 10 MG SUPP PR PRN (10:37)
[2019-09-27] MEDS: LACTATED RINGER'S 1,000 ML IV SCH ×2 (11:13→21:17)
[2019-09-27] MEDS: KETOROLAC 30 MG/ML VIAL IV SCH ×3 (12:18→23:33)
[2019-09-27] MEDS ORDERED: COUGH DROP (SUGAR FREE) LOZ 24 LOZ/1 BOX BUCCAL PRN (14:59)
[2019-09-27] MEDS: CLINDAMYCIN 600 MG in DEXTROSE 5% 50 ML IV SCH ×2 (16:30→23:33)
[2019-09-27] MEDS: CITALOPRAM 40 MG TAB PO SCH (21:09)
[2019-09-27] MEDS: DOCUSATE SODIUM/SENNA 50/8.6MG TAB PO SCH (21:09)
[2019-09-28 05:26] LABS: Basophils # (auto) 0.01 K/uL (0-0.2); Basophils % (auto) 0.1 %; Hematocrit (blood only) 41.4 % (37-47); Immature Granulocytes # (auto) 0.07 K/uL (0.00-0.02); Immature Granulocytes % (auto) 0.4 %; Lymphocytes # (auto) 1.22 K/uL (1.2-3.4); Lymphocytes % (auto) 7.3 %; Mean Corpuscular Hemoglobin 31.5 pg (25-34); Mean Corpuscular Hgb Conc 33.8 g/dL (32-36); Mean Platelet Volume 10.1 fL (7.4-10.4); Monocytes % (auto) 4.8 %; Neutrophils % (auto) 87.4 %; Platelet Count 235 K/uL (130-400); RDW Coefficient of Variation 13.1 % (11.5-14.5); RDW Standard Deviation 44.9 fL (36.4-46.3); Red Blood Count 4.45 M/uL (4.2-5.4)
[2019-09-28 05:44] LABS: BUN Creatinine Ratio 13.7 (10-20); Calcium 9.2 mg/dl (8.5-10.1); Est GFR (African American) 93.4; Est GFR (Non-African American) 80.6; Potassium 4.2 mmol/L (3.5-5.1)
[2019-09-28] MEDS: POLYETHYLENE (MIRALAX) 17 GM PACK PO SCH ×4 (05:44→22:59)
[2019-09-28] MEDS: KETOROLAC 30 MG/ML VIAL IV SCH (05:44)
[2019-09-28] MEDS: LACTATED RINGER'S 1,000 ML IV SCH (05:45)
--- NOTE | 2019-09-28 08:04 | Anesthesiology Progress Note ---
Date of Service September 28, 2019 Anesthesia Post Procedure Vital Signs Vital Signs: Temp Pulse Pulse Pulse Resp BP Pulse Ox 09/28/19 07:04 36.7 C 76 16 118/68 93 09/28/19 03:00 36.7 C 74 16 132/74 94 09/27/19 23:25 36.7 C 69 16 135/70 93 09/27/19 19:00 36.7 C 85 16 120/68 92 09/27/19 15:40 36.5 C 95 H 17 152/87 H 94 09/27/19 13:26 36.6 C 77 16 144/74 H 09/27/19 12:36 36.7 C 82 16 125/78 94 09/27/19 11:26 63 16 118/77 97 09/27/19 10:53 77 16 138/73 96 09/27/19 10:25 36.8 C 79 16 143/78 H 99 09/27/19 10:15 72 13 128/69 94 09/27/19 10:05 36.2 C L 77 16 151/82 H 95 09/27/19 09:55 64 12 148/81 H 95 09/27/19 09:45 78 16 162/85 H 96 09/27/19 09:35 71 15 154/95 H 92 09/27/19 09:28 36.2 C L 79 16 190/97 H 91 Pain Intensity Back: Pain Intensity: 2 Notes Mental Status: alert / awake / arousable and participated in evaluation Patient Amnestic to Procedure: Yes Nausea / Vomiting: adequately controlled Pain: adequately controlled Airway Patency, RR, SpO2: stable & adequate BP & HR: stable & adequate Hydration State: stable & adequate Anesthetic Complications: no major complications apparent and Pt Satisfied with anesthetic care
[2019-09-28] MEDS: SIMVASTATIN 20 MG TAB PO SCH (08:38)
[2019-09-28] MEDS: MULTIVITAMIN TAB PO SCH (08:38)
[2019-09-28] MEDS ORDERED: ZOCOR PO SCH (09:00)
--- NOTE | 2019-09-28 09:33 | Orthopedic Progress Note ---
Date of Service September 28, 2019 Assessment & Plan (1) Neurogenic claudication due to lumbar spinal stenosis: This time continue physical therapy monitor WINTER output hopefully discharge home tomorrow. Present on Admission?: Yes Subjective Back pain controlled leg symptoms markedly improved. Physical Exam Physical Exam: Patient has good strength testing appears comfortable. Results & Data Vital Signs (Past 12 Hours) Vital Signs Temp Pulse Pulse Resp BP Pulse Ox 09/28/19 07:04 36.7 C 76 16 118/68 93 09/28/19 03:00 36.7 C 74 16 132/74 94 09/27/19 23:25 36.7 C 69 16 135/70 93
[2019-09-28] MEDS: HYDROCODONE/ACETAMOPHEN 5/325MG TAB PO PRN (17:21)
[2019-09-28] MEDS: CITALOPRAM 40 MG TAB PO SCH (20:29)
[2019-09-28] MEDS: DOCUSATE SODIUM/SENNA 50/8.6MG TAB PO SCH (20:29)
[2019-09-29] MEDS: HYDROCODONE/ACETAMOPHEN 5/325MG TAB PO PRN (05:28)
[2019-09-29] MEDS: POLYETHYLENE (MIRALAX) 17 GM PACK PO SCH (05:30)
[2019-09-29] MEDS: SIMVASTATIN 20 MG TAB PO SCH (09:05)
[2019-09-29] MEDS: MULTIVITAMIN TAB PO SCH (09:05)
--- NOTE | 2019-09-29 09:28 | Discharge Summary ---
Date of Service September 29, 2019 Admission HPI Per Admitting Provider This is a 59-year-old female who presents with chronic persistent back and leg pain after failing extensive course of nonoperative care is here for surgical intervention. Principal Diagnosis Lumbar spinal stenosis with neurogenic claudication Discharge Data Allergies Allergy/AdvReac Type Severity Reaction Status Date / Time adhesive Allergy Unknown blisters Verified 09/09/19 12:20 WITH BANDAIDS Penicillins Allergy Unknown HIVES Verified 09/09/19 12:20 nickel Allergy EARS SWELL Verified 09/09/19 12:21 UP, ITCHY-JEWELRY oxycodone AdvReac Unknown NAUSEA, Verified 09/09/19 12:25 DIZZINESS Consultations 09/27/19 10:37 Consult Case Management - Discharge Planning Routine Procedures Performed Operation Date: 09/27/19 07:45 Actual Procedures p L5-S1 Decompression and Fusion with Spinal Cord Monitoring(Not Applicable) - Gary Brasher DO Ordered Studies 09/27/19 07:45 FL fluoroscopy <1hr Routine FL lumbar spine 2-3V Routine Hospital Course (1) Neurogenic claudication due to lumbar spinal stenosis: Patient with lumbar decompression fusion tolerated well second orthopedic for possibly. Postop day 1 he was up and ambulating progressed nicely through postop day #2. She had excellent strength testing but pain well controlled WINTER drain decreasing probably. Subsequently discharged home. Discharge orders instructions from the chart for further review. Total Time Total Time Spent Total Time Spent (In Minutes): 20 minutes Discharge Plan Discharge Items Patient Disposition: Home - Self-Care Reason For Visit: LUMBAR SPINAL STENOSIS W/O NEUROGENIC CLAUDICATION Discharge Diagnosis: Lumbar spinal stenosis with spondylolisthesis L5-S1 Activity: As commented below Non-emergency contact: Primary Care Provider Call non-emergency contact if: you have any medication questions Follow-up/Referrals: Leroy Garza MD [Primary Care Provider] - Diet: Regular Addtl Attending Provider Instructions: ACTIVITY RECOMMENDATIONS: SELF CARE INSTRUCTIONS AFTER THORACIC/LUMBAR FUSIONS 1. You may walk to your tolerance. It is good exercise for your legs and back. Expect some back and intermittent leg aches and pains. 2. You may perform "counter-top" level activities (make a sandwich, marlene with a project, etc.). 3. No bending or lifting of more than 10 pounds or back twisting of any nature (roll like a log when turning in bed). 4. You may ride in a car for 20-30 minutes at a time. No driving until after your first visit with your doctor. 5. Frequent changes of position and restricting sitting to 30 minutes at a time will help limit the amount of back spasms and stiffness you may experience. 6. You may discontinue the use of ambulatory aids (cane, crutches, etc.) once your strength and confidence allow. 7. You may standards analyst the shower and let water strike your incision when you arrive home at least once daily. Do not take a tub bath, sit in a hot tub or go into a swimming pool until after your first recheck in the office. SPECIAL CARE INSTRUCTIONS: VERY IMPORTANT TO READ AND REVIEW A. Your surgical incision has been closed with a cosmetic suture under the skin that will dissolve in about 6 weeks. In 14 days, you can use a pair of clean scissors and cut the suture that is left outside of the skin at the ends of your incision. 1. The small skin tapes can be removed 7 days after surgery if they have not fallen off by that point. 2. You may keep the wound open to air as much as possible to promote healing after post-op day number 5 unless told otherwise by your doctor. 3. If you think the wound looks like it is becoming infected (redness or worsening drainage) and/or you are experiencing fever, chill or worsening back pain and muscle spasms, contact the office so that we may evaluate you as soon as possible. B. Complications are uncommon, but please contact us if you have any signs or symptoms of: 1. wound infection (fever higher than 102.5 degrees F, redness, separation of wound, drainage, or increasing pain from the incision) 2. blood clots in legs (pain, swelling, redness and warmth in legs) 3. urinary tract infection (fever higher than 102.5 degrees F, burning upon urination or increased frequency of urination) 4. nerve problems (inability to walk on your toes or heels, numbness, loss of bowel or bladder control) 5. any other symptoms that concern you C. Please call the office at if you have any concerns or questions about your operation or recovery. D. No smoking! Smoking drastically decreases the chance of a solid fusion. E. Do not take any anti-inflammatory medications (Indocin, Advil, Motrin, Aspirin, Naprosyn, etc.) as these may inhibit the chance of a solid fusion. Tylenol is okay to take for pain. MANAGING PAIN AFTER SPINAL SURGERY 1. Narcotic medication is intended for short-term use and will be provided for surgical pain. Surgical pain usually lasts for a period of 4-6 weeks. Narcotic medication includes Percocet, Vicodin, Darvocet, Tylenol #3 or Lortab. 2. Longer-term pain is more appropriately treated with non-narcotic medication such as Tylenol ES. 3. Muscle spasm is not appropriately treated with narcotics. Muscle relaxers such as Soma, Flexeril or Skelaxin can be used along with Tylenol ES. 4. Remember that we all live with some "aches and pains". This is not unusual or uncommon after an injury or as we get older. a. Back pain is expected and may include muscle spasms for 4 to 6 weeks after surgery. The pain should gradually improve. If the pain worsens for no apparent reason, please contact the office. b. Intermittent leg pain may also be experienced and should not be concerned about unless it worsens for no apparent reason. If so, please contact the office. 5. We will provide appropriate medication within the normal guidelines of their prescribed use. We will also be very cautious and aware of potential abuse and extended duration of patients' medication needs. a. Pain medications are for your comfort and to assist with sleep and rest so that the tissue can heal. They are not provided in order to return to normal activity and should not be used through the day. To do so or worsening pain at night can result from ongoing tissue damage and development of tolerance to the prescribed medicine. 6. Please allow 2-3 days to process refills. Prescriptions will not be mailed but must be picked up at the office. FOLLOW UP VISIT: Keep your scheduled follow-up appointment. Any questions, please call the office at . Pending Studies at Discharge: No Stand-Alone Forms: My [employer], Smoking Cessation Medications and DC Order Prescriptions: New hydrocodone-acetaminophen 5-325 mg tablet See Rx Instructions .ROUTE .COMPLEX PRN (Reason: pain) Qty: 30 RF: 0 tramadol 50 mg tablet 50 mg PO Q6H PRN (Reason: pain, moderate) Qty: 30 RF: 0 Continued citalopram 40 mg Tablet 40 mg PO HS RF: 0 clopidogrel [Plavix] 75 mg Tablet 75 mg PO QAM RF: 0 acetaminophen [Tylenol Extra Strength] 500 mg Tablet 1,000 mg PO Q6H PRN (Reason: Pain) RF: 0 tramadol 50 mg Tablet 50 - 100 mg PO Q6H PRN (Reason: Pain) RF: 0 polyethylene glycol 3350 [Miralax] 17 gram/dose Powder 17 g PO DAILY PRN (Reason: Constipation) RF: 0 multivitamin Tablet 1 tab PO QAM RF: 0 Zocor 20 mg PO QAM RF: 0 Prilosec OTC 20 mg Tablet,Delayed Release (Dr/Ec) 20 mg PO DAILY PRN (Reason: Acid Reflux) RF: 0 oxycodone 5 mg Capsule 5 - 10 mg PO Q4H PRN (Reason: Pain) RF: 0 Discontinued ibuprofen 200 mg Tablet 200 mg PO Q6H PRN (Reason: Pain) RF: 0 Discharge Orders: Discharge Order (Routine); Ordered 09/29/19 Ordered By: Gary Brasher Admission Data Admit Date/Time: 09/27/19 09:31 Attending Provider: Gary Brasher Admit Provider: Gary Brasher Primary Care Provider: Leroy Garza
== END 2019-09-29 12:44 | disposition home or self-care (01) | DRG 455 ==
LOC: ASU 06:06 → 3E 09:31